=== PATIENT | male | born 1990 | race Caucasian/White ===

== ENCOUNTER 2019-12-19 02:52 | Emergency (ER) | payer OTHER ==
[~2019-12-19] VITALS: Ht 180.3 cm; Wt 92.9 kg
--- NOTE | 2019-12-19 03:14 | NUR ---
PT STATES HE CAME IN TONIGHT DUE TO LOWER RIGHT QUADRANT ABDOMINAL PAIN. STATES ITS SHARP STABBING AND RADIATES DOWN INTO HIS GROIN, STATES HE HAD A BOWEL MOVEMENT YESTERDAY, DENIES ANY NAUSEA OR VOMITTING. DENIES SYMPTOMS. NAD. VSS. PT PLACED ON SPO2/BP MONITORING, GIVEN WARM BLANKETS FOR COMFORT, AT BS. WCTM.
[2019-12-19] MEDS ORDERED: ONDANSETRON 2MG/ML, 2ML ONE ×2 (03:53→05:13)
[2019-12-19] MEDS ORDERED: MORPHINE SULFATE 4 MG/ML, 1ML ONE ×3 (03:53→05:14)
[2019-12-19] MEDS ORDERED: ONDANSETRON 2MG/ML, 2ML IVPush ONE ×2 (04:00→05:30)
[2019-12-19] MEDS ORDERED: MORPHINE SULFATE 4 MG/ML, 1ML IVPush ONE ×2 (04:00→05:30)
[2019-12-19 04:10] LABS: BASOPHILS # (AUTO) 0.03 x10^3/uL (0-0.1); BASOPHILS % (AUTO) 0 % (0-1); EOSINOPHILS # (AUTO) 0.25 x10^3/uL (0-0.4); EOSINOPHILS % (AUTO) 2 % (1-7); LYMPHOCYTES % (AUTO) 19 % (22-44); MD NO; MEAN CORPUSCULAR HEMOGLOBIN 29.8 pg (27.5-34.5); MEAN CORPUSCULAR VOLUME 87.7 fL (81-97); MEAN PLATELET VOLUME 8.1 fL (7.4-10.4); MONOCYTES # (AUTO) 0.73 x10^3/uL (0.2-0.8); MONOCYTES % (AUTO) 6 % (2-9); NEUTROPHILS # (AUTO) 8.36 x10^3/uL (1.8-6.8); NEUTROPHILS % (AUTO) 72 % (42-75); PLATELET COUNT 283 x10^3/uL (130-400); RED CELL DISTRIBUTION WIDTH 12.8 % (9.4-14.8)
--- NOTE | 2019-12-19 04:19 | NUR ---
PT MEDICATED PER MAR, AT BS, PT APPEARS TO BE UNCOMFORTABLE, NAD, VSS, WCTM. WIATING FOR ADDITIONAL TESTING RESULTS.
[2019-12-19 04:24] LABS: ANION GAP 6 mmol/L (5-15); CHLORIDE 109 mmol/L (98-107)
[2019-12-19 04:31] LABS: CREATININE 0.91 mg/dL (0.7-1.3)
[2019-12-19] MEDS ORDERED: OMNIPAQUE 350 MG/ML, 100ML BOTTLE ONE (04:52)
--- NOTE | 2019-12-19 04:56 | NUR ---
PT BACK FROM CT LAYING ON PRASANNA, GRUPO, APPEARS SLIGHTLY MORE COMFORTABLE THAN BEFORE BUT STATES THE MEDICATION "ONLY TOOK THE EDGE OFF". PT VSS, AT , WAITING FOR ADDITIONAL RESULTS. WCTM.
--- NOTE | 2019-12-19 05:00 | NUR ---
PT APPEARING TO BE INCREASINGLY UNCOMFORTABLE, LAYING BACK IN BED, HOLDING LOWER RIGHT QUADRANT. NAD, VSS, WCTM.
--- NOTE | 2019-12-19 05:17 | NUR ---
PT MEDICATED PER MAR FOR PAIN, RESTING ON GURNEY, NAD, WAITING FOR RESULTS, WCTM.
[2019-12-19] MEDS ORDERED: KETOROLAC 30 MG/1 ML IVPush ONE (06:00)
--- NOTE | 2019-12-19 06:09 | NUR ---
UA SENT TO LAB, PT RESTING ON GRUPO MIMS, AT BS. STATES PAIN IS MINIMAL AND TOLERABLE AT THIS TIME. WCTM. WAITING FOR UA RESULTS.
[2019-12-19 06:29] LABS: MICROSCOPIC AUTO
[2019-12-19 06:37] VITALS: BP 138/84
--- NOTE | 2019-12-19 06:41 | NUR ---
Patient/SPOUSE given discharge instructions and they have confirmed that they understand the instructions. Patient ambulatory with steady gait. NAD, VSS, SKIN WARM AND DRY. DENIES ADDITIONAL QUESTIONS OR NEEDS AT THIS TIME. NO BELONGINGS LEFT IN ROOM AFTER DC.
--- NOTE | 2019-12-19 07:05 | NUR ---
PT GIVEN FUNNEL AND SPECIMEN CUP FOR STONE.
== END 2019-12-19 07:06 | disposition home or self-care (01) ==
LOC: ED 05:18
DX: N13.2 Hydronephrosis with renal and ureteral calculous obstruction (principal); R10.31 Right lower quadrant pain; R50.9 Fever, unspecified; R11.0 Nausea
CPT/HCPCS: 36415; 74177; 80048; 81001; 85025; 96374; 96375; 96376; 99285; J2270; J2405; Q9967